=== PATIENT | male | born 1950 | race Asian ===

== ENCOUNTER 2024-06-28 07:25 | Day surgery (SDC) | payer OTHER ==
[~2024-06-28] VITALS: Ht 165.1 cm; Wt 63.5 kg
[2024-06-28] MEDS ORDERED: fentaNYL citrate 0.05 MG/ML VIAL ONE (08:23)
[2024-06-28] MEDS: fentaNYL citrate 0.05 MG/ML VIAL IVP ONE (08:36)
[2024-06-28] MEDS: LIDOCAINE 2% 100 MG/5 ML UJET TP ONE (08:50)
[2024-06-28] MEDS: EPINEPHrine PFS 0.1 MG/ML SYR IVP ONE (09:25)
[2024-06-28] MEDS ORDERED: SIMETHICONE 40 MG/0.6 ML ONE (09:47)
== END 2024-06-28 10:24 | disposition home or self-care (01) ==
LOC: MDS 07:25 → MMU 07:26 → MDS 10:24
PROVIDERS: ATTEND Internal Medicine Gastroenterology
DX: Z12.11 Encounter for screening for malignant neoplasm of colon (principal); K63.5 Polyp of colon; K57.30 Diverticulosis of large intestine without perforation or abscess without bleeding; K64.9 Unspecified hemorrhoids; I10 Essential (primary) hypertension; E78.5 Hyperlipidemia, unspecified; M10.9 Gout, unspecified; Z90.49 Acquired absence of other specified parts of digestive tract
CPT/HCPCS: 45381; 45385; 88305; J0171; J3010